=== PATIENT | female | born 1975 | race Caucasian/White ===

== ENCOUNTER 2016-12-07 23:43 | Emergency (ER) | payer OTHER ==
[2016-12-08 03:45] LABS: HEMOGLOBIN 15.4 gm/dl (12.3-15.3); RED BLOOD COUNT 5.1 M/UL (4.00-5.10); WHITE BLOOD COUNT 18.2 K/UL (4.5-11.0)
[2016-12-08 04:02] LABS: BUN/CREATININE RATIO 18 (0-10)
== END 2016-12-08 05:58 | disposition home or self-care (01) ==
LOC: ER1 23:43
PROVIDERS: Emergency Medicine
DX: R10.826 Epigastric rebound abdominal tenderness (principal); I10 Essential (primary) hypertension; R11.2 Nausea with vomiting, unspecified; R19.7 Diarrhea, unspecified; Z90.710 Acquired absence of both cervix and uterus; Z88.0 Allergy status to penicillin; Z88.6 Allergy status to analgesic agent; Z88.2 Allergy status to sulfonamides; Z91.040 Latex allergy status; Z88.1 Allergy status to other antibiotic agents; Z88.8 Allergy status to other drugs, medicaments and biological substances
CPT/HCPCS: 36415; 80053; 81001; 83690; 84703; 85025; 87086; 93005; 96361; 96374; 96375; 99284; J2270; J2405; J7050; Q9962

== ENCOUNTER 2017-01-01 16:35 | Emergency (ER) | payer OTHER ==
[2017-01-01 17:27] LABS: WHITE BLOOD COUNT 15.8 K/UL (4.5-11.0)
[2017-01-01 17:56] LABS: BUN/CREATININE RATIO 14 (0-10)
== END 2017-01-01 21:28 | disposition home or self-care (01) ==
LOC: ER1 16:35
PROVIDERS: Emergency Medicine
DX: R07.89 Other chest pain (principal); I10 Essential (primary) hypertension; F41.9 Anxiety disorder, unspecified; E07.9 Disorder of thyroid, unspecified; Z90.710 Acquired absence of both cervix and uterus; Z88.6 Allergy status to analgesic agent; Z88.0 Allergy status to penicillin; Z95.9 Presence of cardiac and vascular implant and graft, unspecified; Z88.8 Allergy status to other drugs, medicaments and biological substances
CPT/HCPCS: 36415; 71010; 80053; 81001; 82550; 82553; 83690; 83874; 84484; 84703; 85025; 87086; 93005; 99285

== ENCOUNTER 2017-01-13 15:36 | Emergency (ER) | payer OTHER | END 2017-01-13 17:33 | disposition home or self-care (01) | LOC: ER1 15:36 | DX: S39.012A Strain of muscle, fascia and tendon of lower back, initial encounter (principal); I10 Essential (primary) hypertension; Z88.0 Allergy status to penicillin; Z88.1 Allergy status to other antibiotic agents; Z88.2 Allergy status to sulfonamides; Z88.6 Allergy status to analgesic agent; Z88.8 Allergy status to other drugs, medicaments and biological substances; W20.8XXA Other cause of strike by thrown, projected or falling object, initial encounter | CPT/HCPCS: 72100; 99283 ==

== ENCOUNTER 2022-01-03 11:53 | Emergency (ER) | payer OTHER ==
[~2022-01-03 11:53] MED LIST: AMITIZA24 MCG PO; BENTYL 10MG CAP10 MG PO; BENTYL 20MG TAB20 MG PO; CIPRO250 MG PO; COZAAR 50MG TAB50 MG PO; EFFEXOR XR75 MG PO; FELDENE10 MG PO; FLAGYL500 MG PO; FLEXERIL 10 MG10 MG PO; FLOMAX0.4 MG PO; INDERAL TAB 2020 MG PO; KENALOG 0.5% CR15 GM EXT; KLONOPIN TAB 00.5 MG PO; LEVAQUIN500 MG PO; LIDOCAINE PAIN1 EACH TOP; LIPITOR10 MG PO; MACROBID 100 M100 MG PO; NEURONTIN 400400 MG PO; NORCO 5-325 TA1 EACH PO; NORFLEX 100 MG100 MG PO; OMEPRAZOLE20 MG PO; OMNICEF 300 MG300 MG PO; PERCOCET 5/325 T1 EA PO; PHENERGAN 12.12.5 M1 PO; PHENERGAN 25 MG25 M1 PO; SINGULAIR10 MG PO; SYNJARDY PO; SYNTHROID88 MCG PO; TOPAMAX100 MG PO; TRAZODONE HCL100 MG PO; TYLENOL 500 MG500 MG PO; VITAMIN D250000 UNIT PO; Voltaren Gel 1 % TOP; ZOFRAN ODT 4 MG4 MG GT; ZOFRAN ODT 4 MG4 MG SL; ZOFRAN4 MG PO
== END 2022-01-03 14:39 | disposition left against medical advice (07) ==
LOC: ER1 11:53
DX: Z53.21 Procedure and treatment not carried out due to patient leaving prior to being seen by health care provider (principal)

== ENCOUNTER → 2022-02-19 | Outpatient (CLI) | payer OTHER | LOC: KOH-I 13:16 | DX: M79.671 Pain in right foot (principal); S92.254A Nondisplaced fracture of navicular [scaphoid] of right foot, initial encounter for closed fracture | CPT/HCPCS: 73630 ==

== ENCOUNTER → 2022-03-22 | Outpatient (CLI) | payer OTHER | LOC: KOH-I 13:40 | DX: S92.251D Displaced fracture of navicular [scaphoid] of right foot, subsequent encounter for fracture with routine healing (principal) | CPT/HCPCS: 73630 ==

== ENCOUNTER → 2022-04-02 | Outpatient (CLI) | payer OTHER | LOC: KOH-I 03-30 13:45 | DX: M79.671 Pain in right foot (principal) | CPT/HCPCS: 73718 ==